=== PATIENT | male | born 1960 | race Caucasian/White ===

== ENCOUNTER 2018-09-28 18:10 | Emergency (ER) | payer BC, OTHER ==
--- OUTSIDE RECORDS SUMMARY | 2018-09-28 18:24 | XMS REPORT | Continuity of Care Document ---
:1960 External Reference #:[id number] Author Name Rani Winston Care Team Providers Name Role Phone Jackson Green Care Team Information Electronics Technician Unavailable Payers Date Identification Numbers Payment Provider Subscriber Policy Number: [id number] [facility] Dheeraj Morales PayID: [id number] [address] [address] [place] [address] Advance Directives Description No Information Available Problems Description No Information Family History Date Family Member(s) Observation Comments Father due to Lung Cancer () Father due to Heart Disease () Mother due to Breast Cancer () Social History Type Date Description Comments Sex Unknown Marital Status Has been 1 time Tobacco Use Start: Unknown Never Smoked Cigarettes ETOH Use Social Tobacco Use Start: Unknown Patient has never smoked Recreational Drug Use Never Used Drugs Smoking Status Reviewed: 02/19/17 Patient has never smoked Seat Belt/Car Seat Always uses seat belt Allergies, Adverse Reactions, Alerts Description No Known Drug Allergies Medications Active Medications SIG Qnty Indications Ordering Date Provider Famotidine 1 by mouth twice 180tabs K21.9 Jackson Green 02/24/2018 20mg Tablets a day as needed Lipitor 1 by mouth every 90tabs Jackson Green 10mg Tablets day Multivitamins OTC Unknown Capsules Amitriptyline HCL 1/2 tablet by Unknown 10mg mouth every Tablets night at bedtime L-Theanine one as needed Unknown 100mg Capsules for anxiety Lipoflavonoid one tablet 3 Unknown Tablets times a day History Medications Amoxicillin/Clavulanate 1 by mouth 21tabs H92.02 Jackson Green 07/30/2018 - Potassium three times a 09/22/2018 500-125mg Tablets day Diphenhydramine HCL (Sleep) 1 by mouth 14tabs H92.02 Norma, Jackson 2018 - 50mg every night at 09/22/2018 Tablets bedtime as needed Neomycin/Polymyxin/Hydrocorti 1 qtt both 10units H62.43 June Green, 07/23 - sone (Otic) ears 4x daily M.D. 09/22/2018 [id number] Solution Elavil 1 by mouth 90tabs E78.5 Gauss, Jackson 02/24/2018 - 25mg Tablets every day at 02/24/2018 bedtime Amitriptyline HCL 1 by mouth 90tabs E78.5 Gauss, Jackson 02/24/2018 - 25mg Tablets qhs. 02/24/2018 Elavil 1 by mouth 90tabs H93.13 Galily, Jackson 01/23/2017 - 25mg Tablets every hhs 02/24/2018 Elavil 1 by mouth H93.13 Galily, Jackson 09/26/2016 - 12.5 Tablets every day at 01/23/2017 bedtime Elavil 1 by mouth 90tabs H93.13 Gauss, Jackson 08/21/2016 - 25mg Tablets every day at 09/26/2016 bedtime Omeprazole 1 by mouth 90caps K21.9 Jackson Green 01/02/2016 - 40mg Capsules DR every day 05/07/2016 Prevacid 1 by mouth 90caps K21.9 GaJackson bautista 11/07/2015 - 30mg Capsules DR every day 11/07/2015 Famotidine 1 PO Q Day 90tabs K21.9 Arnel Greenl 11/07/2015 - 40mg Tablets 02/24/2018 Nexium 24HR 1 PO Q Day 90caps Jackson Green 06/22/2014 - 20mg Capsules DR 08/01/2015 Aspirin Low Dose 100tabs Jackson Green 06/22/2014 - 81mg Tablets 05/07/2016 Vitamin D-1000 Maximum 1 by mouth 100tabs Jackson Green 06/22/2014 - Strength every day 02/24/2018 1000Unit Tablets Prilosec 1 by mouth 90caps Unknown - 40mg Capsules DR every day 06/22/2014 Viagra one by mouth 14tabs Jackson Green - 100mg Tablets as needed 02/24/2018 Triamcinolone Acetonide twice a day to 60gm Jackson Green - 0.1% Ointment affected areas 08/01/2015 Immunizations CPT Code Status Date Vaccine Lot # [id number] Given 02/24/2018 Influenza Virus (Afluria) Split Virus 3 Years Of [id number] Age And Older 18969 Given 02/24/2018 Influenza Virus Vaccine, Quadrivalent, Split, Preservative Free [id number] Given 05/02/2016 Influenza Vaccine (Fluvirin) 3 Years Of Age Or Older 14673 Given 08/01/2015 Tetanus,Diphtheria,Adut/Adol Pertussis [id number] Given 05/11/2015 Influenza Vaccine (Fluvirin) 3 Years Of Age Or Older Vital Signs Date Vital Result Comment 09/22/2018 8:27am BP Systolic 156 mmHg BP Diastolic 84 mmHg Height 70 inches 5'10" Weight 149.00 lb BMI (Body Mass Index) 21.4 kg/m2 07/30/2018 11:22am BP Systolic 136 mmHg BP Diastolic 76 mmHg Body Temperature 97.8 F Height 70 inches 5'10" Weight 157.00 lb BMI (Body Mass Index) 22.5 kg/m2 07/23/2018 1:41pm BP Systolic 144 mmHg BP Diastolic 80 mmHg Body Temperature 97.9 F Height 70 inches 5'10" Weight 157.00 lb BMI (Body Mass Index) 22.5 kg/m2 02/24/2018 10:20am BP Systolic 120 mmHg BP Diastolic 70 mmHg Heart Rate 59 /min Height 70 inches 5'10" Weight 158.00 lb BMI (Body Mass Index) 22.7 kg/m2 O2 % BldC Oximetry 98 % 08/19/2017 10:56am BP Systolic 124 mmHg BP Diastolic 70 mmHg Height 70 inches 5'10" Weight 158.00 lb BMI (Body Mass Index) 22.7 kg/m2 02/19/2017 1:38pm BP Systolic 130 mmHg BP Diastolic 62 mmHg Height 70 inches 5'10" Weight 154.00 lb BMI (Body Mass Index) 22.1 kg/m2 09/26/2016 10:28am BP Systolic 116 mmHg BP Diastolic 68 mmHg 08/21/2016 2:10pm BP Systolic 124 mmHg BP Diastolic 78 mmHg 08/07/2016 2:31pm BP Systolic 130 mmHg BP Diastolic 68 mmHg Height 70 inches 5'10" Weight 154.00 lb BMI (Body Mass Index) 22.1 kg/m2 05/07/2016 10:36am BP Systolic 118 mmHg BP Diastolic 68 mmHg Height 70 inches 5'10" Weight 155.00 lb BMI (Body Mass Index) 22.2 kg/m2 01/02/2016 10:48am BP Systolic 122 mmHg BP Diastolic 68 mmHg 11/07/2015 11:47am BP Systolic 112 mmHg BP Diastolic 60 mmHg Height 70 inches 5'10" Weight 151.00 lb BMI (Body Mass Index) 21.7 kg/m2 08/01/2015 10:42am BP Systolic 132 mmHg BP Diastolic 78 mmHg Height 70 inches 5'10" Weight 157.00 lb BMI (Body Mass Index) 22.5 kg/m2 01/17/2015 10:07am BP Systolic 120 mmHg BP Diastolic 62 mmHg Height 70 inches 5'10" Weight 162.00 lb BMI (Body Mass Index) 23.2 kg/m2 07/19/2014 10:42am BP Systolic 128 mmHg BP Diastolic 70 mmHg Height 70 inches 5'10" Weight 159.00 lb BMI (Body Mass Index) 22.8 kg/m2 06/22/2014 1:53pm BP Systolic 110 mmHg BP Diastolic 58 mmHg Height 70 inches 5'10" Weight 160.00 lb BMI (Body Mass Index) 23.0 kg/m2 Results Test Date Facility Test Result H/L Range Note Lipid Panel 07/25/2018 [facility] Cholesterol 178 mg/dL <[address] [place], [place] [id number] [phone] HDL Cholesterol 52 mg/dL >40 Cholesterol/HDL Ratio 3.4 CALC <5.0 LDL Chol,Calculated 107 mg/dL High 0-100 2 Triglycerides 98 mg/dL <150 Non-HDL Cholesterol 126 mg/dL <130 3 Lipid Panel 02/18/2018 [facility] Cholesterol 184 mg/dL <199 [address] [facility]. [place], [place] [id number] [phone] HDL Cholesterol 56 mg/dL >40 Cholesterol/HDL Ratio 3.3 CALC <5.0 LDL Chol,Calculated 106 mg/dL High 0-100 4 Triglycerides 121 mg/dL <150 Non-HDL Cholesterol 128 mg/dL <130 5 Laboratory test 02/18/2018 [facility] PSA,Total 0.6 NG/ML < Or=4.0 [address] [place] [address] [phone] Testosterone,Total,MS 431 ng/dL 250-1100 7 Basic Metab W/O CA 02/18/2018 [facility] Sodium 141 mmol/L 135-[address] [place] [id number] [phone] Potassium 4.3 mmol/L 3.5-5.3 Chloride 102 mmol/L 98-110 Carbon Dioxide 32 mmol/L 20-32 8 Glucose 98 mg/dL 65-99 9 Urea Nitrogen (BUN) 12 mg/dL 7-25 Creatinine 0.97 mg/dL 0.70-1.33 10 BUN/Creatinine Ratio 12.2 6-22 TSH & T4,Free 02/18/2018 [facility] TSH 3.06 mIU/L 0.40-4.[address] [place] [id number] [phone] T4,Free 0.9 ng/dL 0.8-1.8 Laboratory 02/18/2018 [facility] Vitamin 41 30-[address] D,25-Hydroxy,Total,Immunoassay NG/[place] [address] [phone] Lipid Panel 08/13/2017 [facility] Cholesterol 164 <[address] mg/[place] [address] [phone] HDL Cholesterol 55 mg/dL >40 Cholesterol/HDL Ratio 3.0 CALC <5.0 LDL Chol,Calculated 94 mg/dL 0-100 12 Triglycerides 68 mg/dL <150 Non-HDL Cholesterol 109 mg/dL <130 13 Lipid Panel 02/14/2017 [facility] Cholesterol 184 mg/dL <[address] [place] [address] [phone] HDL Cholesterol 61 mg/dL >40 Cholesterol/HDL Ratio 3.0 CALC <5.0 LDL Chol,Calculated 107 mg/dL High <100 14 Triglycerides 74 mg/dL <150 Non-HDL Cholesterol 123 mg/dL <130 15 Laboratory 02/14/2017 [facility] Testosterone,Total,LC/MS/MS 339 250- 1100 16 test finding [address] ng/[place] [address] [phone] Vitamin D,25-Hydroxy,Total,Immunoassay 43 NG/ML 30-100 17 PSA,Total 0.6 NG/ML < Or=4.0 18 CBC W/ Diff & PLT 02/14/2017 [facility] WBC 5.4 thous/L 3.8-10.[address] [place] [address] [phone] RBC 5.23 mill/L 4.20-5.80 Hemoglobin 15.4 g/dL 13.2-17.1 Hematocrit 46.5 % 38.5-50.0 MCV 89.0 FL 80.0-100.0 MCH 29.5 pg 27.0-33.0 MCHC 33.2 g/dL 32.0-36.0 RDW 12.9 % 11.0-15.0 Platelet Count 293 thous/L 140-400 Platelet Sufficiency PENDING MPV 7.7 FL 7.5-12.5 Neutrophils,Absolute 3940 cells/L [phone] Bands,Absolute PENDING Metamyelocytes,Absolute PENDING Myelocytes,Absolute PENDING Promyelocytes,Absolute PENDING Lymphocytes,Absolute 920 cells/L [phone] Monocytes,Absolute 410 cells/L 200-950 Eosinophils,Absolute 80 cells/L 15-500 Basophils,Absolute 30 cells/L 0-200 Blast Cells,Absolute PENDING Nucleated RBC,Absolute PENDING Total Neutrophils,% 73 % 40-75 Bands,% PENDING Metamyelocytes,% PENDING Myelocytes,% PENDING Promyelocytes,% PENDING Total Lymphocytes,% 17 % 12-47 Monocytes,% 8 % 4-12 Eosinophils,% 1 % 0-4 Basophils,% 1 % 0-1 19 Blasts,% PENDING Nucleated RBC PENDING RBC Morphology PENDING Anisocytosis PENDING Poikilocytosis PENDING Microcytosis PENDING Macrocytosis PENDING Polychromasia PENDING Hypochromasia PENDING Target Cells PENDING Basophilic Stippling PENDING Comment PENDING Comp Metabolic Panel 02/14/2017 [facility] Sodium 139 mmol/L 135-[address] [place] [address] [phone] Potassium 4.1 mmol/L 3.5-5.3 Chloride 99 mmol/L 98-110 Carbon Dioxide 32 mmol/L High 20-31 Calcium 9.6 mg/dL 8.6-10.3 Alkaline Phosphatase 51 U/L 40-115 Ast 20 U/L 10-35 Alt 29 U/L 9-46 Bilirubin,Total 0.8 mg/dL 0.2-1.2 Glucose 97 mg/dL 65-99 20 Urea Nitrogen 11 mg/dL 7-25 Creatinine 1.00 mg/dL 0.70-1.33 21 BUN/Creatinine Ratio 10.7 6-22 Protein,Total 7.3 g/dL 6.1-8.1 Albumin 4.8 g/dL 3.6-5.1 Globulin,Calculated 2.5 g/dL 1.9-3.7 A/G Ratio 1.9 1.0-2.5 Egfr Non-Afr. Greek 83 ML/MIN/1.73M2 > Or=60 Egfr 96 ML/MIN/1.73M2 > Or=60 Lipid Panel 08/01/2016 [facility] Cholesterol 178 mg/dL 125-[address] [place], [place] [id number] [phone] HDL Cholesterol 54 mg/dL > Or=40 Cholesterol/HDL Ratio 3.3 < Or=5.0 LDL Chol,Calculated 100 mg/dL <130 22 Triglycerides 120 mg/dL <150 Non-HDL Cholesterol 125 mg/dL 23 Lipid Panel 05/03/2016 [facility] Cholesterol 187 mg/dL 125-200 6 [address] [facility] [place] [address] [phone] HDL Cholesterol 54 mg/dL > Or=40 Cholesterol/HDL Ratio 3.5 < Or=5.0 LDL Chol,Calculated 114 mg/dL <130 24 Triglycerides 93 mg/dL <150 Non-HDL Cholesterol 133 mg/dL 25 Lipid Panel 11/02/2015 [facility] Cholesterol 174 mg/dL 125-200 [address] [facility] [place] [address] [phone] HDL Cholesterol 49 mg/dL > Or=40 Cholesterol/HDL Ratio 3.6 < Or=5.0 LDL Chol,Calculated 105 mg/dL <130 26 Triglycerides 102 mg/dL <150 Non-HDL Cholesterol 125 mg/dL 27 Laboratory test 08/01/2015 [facility] PSA,Total 0.5 NG/ML < Or=4.0 [address] [place] [address] [phone] Laboratory test 07/19/2015 [facility] Magnesium 2.0 mg/dL 1.8-2.[address] [place] [id number] [phone] Laboratory test 07/19/2015 [facility] Thyroid Stim 3.28 0.36-3.[address] Hormone uIU/[place] [address] [phone] Free T4 0.86 ng/dL 0.76-1.46 Testosterone,Serum 07/19/2015 [facility] Testosterone, Serum [phone] ng/[place] [address] [phone] Comment See Note 29 Laboratory test 07/19/2015 [facility] Vitamin 49.8 30.0-100.0 [address] D,25-Hydroxy ng/mL [place] [id number] [phone] CBC W/ Diff & 07/19/2015 [facility] White Blood 6.4 K /uL 3.4-10.[address] [place] [address] [phone] Red Blood Count 5.33 M/uL 4.20-5.80 Hemoglobin 16.2 gm/dL 12.8-17.0 Hematocrit 45.7 % 38.0-48.0 Mean Cell Volume 85.7 fl 80.0-96.0 Mean Corpuscular HGB 30.4 pg 27.0-33.0 Mean Corpuscular HGB Conc 35.4 g/dL 31.7-36.0 Platelet Count 319 K/uL 150-400 Red Cell Distri Width SD 38.5 fl 36-51 Red Cell Distri Width %CV 12.6 % 11.6-15.8 Mean Platelet Volume 9.4 fL 6.6-10.6 Neut% 71.1 % 33.0-73.0 Lymph % 16.7 % Low 17.0-56.0 [place] % 10.6 % High 0.0-10.0 Eo% 1.4 % 0.0-5.0 Bas% 0.2 % 0.1-1.0 Neut# 4.52 K/uL 1.8-7.0 Lymph # 1.06 K/uL Low 1.8-7.0 [place] # 0.67 K/uL 0.0-0.8 Eos # 0.09 K/uL 0.0-0.5 Baso # 0.01 K/uL Low 0.1-0.2 Comprehensive Metabolic 07/19/2015 [facility] Glucose 90 mg/dL 74-[address] [place], [place] [id number] [phone] BUN 13 mg/dL 7-18 Creatinine 1.0 mg/dL 0.6-1.3 Glom Filtration Rate, Estimate >60 mL/min >60 If >60 mL/min >60 31 BUN/Creat 13.0 ratio Sodium 139 mmol/L 136-145 Potassium 4.0 mmol/L 3.5-5.1 Chloride 102 mmol/L 98-107 Carbon Dioxide 32 mmol/L 21-32 Anion Gap 5 mEq/L Low 8-16 Calcium 8.7 mg/dL 8.5-10.1 Total Protein 7.6 g/dL 6.4-8.2 Albumin 4.2 g/dL 3.4-5.0 Globulin 3.4 g/dL 1.9-4.3 Alb/Glob 1.2 ratio Bilirubin,Total 0.6 mg/dL 0.2-1.0 Sgot/Ast 17 U/L 15-37 SGPT/Alt 39 U/L 12-78 Alkaline Phosphatase 57 U/L 45-117 LDL Cholesterol 07/19/2015 [facility] Cholesterol 151 mg/dL <200 [address] [place], [place] [id number] [phone] Triglycerides 74 mg/dL <150 33 HDL Cholesterol 52 mg/dL >40 34 LDL-Cholesterol 84 mg/dL < 100 35 LDL Cholesterol 01/10/2015 [facility] Cholesterol 162 mg/dL < 200 [address] [place] [address] [phone] Triglycerides 92 mg/dL < 150 37 HDL Cholesterol 55 mg/dL > 40 38 LDL-Cholesterol 89 mg/dL < 100 39 Laboratory test 06/30/2014 [facility] Vitamin 47.5 30.0-100.0 [address] D,25-Hydroxy ng/mL [place], [place] [address] [phone] LDL Cholesterol 06/30/2014 [facility] Cholesterol 169 mg/dL < 200 [address] [place] [address] [phone] Triglycerides 96 mg/dL < 150 42 HDL Cholesterol 56 mg/dL > 40 43 LDL-Cholesterol 94 mg/dL < 100 44 CBS W/Automated 06/30/2014 [facility] White Blood 6.0 K/uL 3.4-10.[address] [place] [address] [phone] Red Blood Count 5.07 M/uL 4.20-5.80 Hemoglobin 15.5 gm/dL 12.8-17.0 Hematocrit 44.4 % 38.0-48.0 Mean Cell Volume 87.6 fl 80.0-96.0 Mean Corpuscular HGB 30.6 pg 27.0-33.0 Mean Corpuscular HGB Conc 34.9 g/dL 31.7-36.0 Platelet Count 311 K/uL 150-400 Red Cell Distri Width SD 39.9 fl 36-51 Red Cell Distri Width %CV 12.7 % 11.6-15.8 Mean Platelet Volume 9.6 fL 6.6-10.6 Neut% 70.1 % 33.0-73.0 Lymph % 16.6 % Low 17.0-56.0 [place] % 11.2 % High 0.0-10.0 Eo% 1.8 % 0.0-5.0 Bas% 0.3 % 0.1-1.0 Neut# 4.18 K/uL 1.8-7.0 Lymph # 0.99 K/uL Low 1.2-4.0 [place] # 0.67 K/uL High 0.0-0.6 Eos # 0.11 K/uL 0.0-0.5 Baso # 0.02 K/uL Low 0.1-0.2 Laboratory test 06/30/2014 [facility] Prostate 0.68 ng/mL [address] [place] [address] Antigen [phone] Testosterone,Seru 06/30/2014 [facility] Testosterone, S 417 ng/dL 348-[address] [place] [address] [phone] Comment See Note 46 Comprehensive Metabolic 06/30/2014 [facility] Glucose 84 mg/dL 74-[address] [place] [address] [phone] BUN 12 mg/dL 7-18 Creatinine 1.0 mg/dL 0.6-1.3 Glom Filtration Rate, Estimate >60 mL/min >60 If >60 mL/min >60 47 BUN/Creat 12.0 ratio Sodium 139 mmol/L 136-145 Potassium 3.8 mmol/L 3.5-5.1 Chloride 102 mmol/L 98-107 Carbon Dioxide 31 mmol/L 21-32 Anion Gap 10 mEq/L 8-16 Calcium 8.4 mg/dL Low 8.5-10.1 Total Protein 7.4 g/dL 6.4-8.2 Albumin 4.0 g/dL 3.4-5.0 Globulin 3.4 g/dL 1.9-4.3 Alb/Glob 1.2 ratio Bilirubin,Total 0.6 mg/dL 0.2-1.0 Sgot/Ast 18 U/L 15-37 SGPT/Alt 33 U/L 12-78 Alkaline Phosphatase 59 U/L 45-117 Laboratory test 06/30/2014 [facility] Thyroid Stim 2.57 uIU/mL 0.36-3.[address] [place] [address] [phone] Free T4 0.76 ng/dL 0.76-1.46 1 FASTING 2 LDL-C is now calculated using the Guido calculation, which is a validated novel method providing better accuracy than the Friedewald equation in the estimation of LDL-C. Romie VASQUEZ et al.YONI.2013;310(19):7066-6143 Desirable range <100 mg/dL for primary prevention; <70 mg/dL for patients with CHD or diabetic patients with >or=2 CHD risk factors. For additional information, please refer to http://education.[employer]/faq/BJM294(This link is being provided for informational/educational purposes only.) 3 For patients with diabetes plus 1 major ASCVD risk factor, treating to a non-HDL-C goal of <100 mg/dL (LDL-C of <70 mg/ dL) is considered a therapeutic option. 4 LDL-C is now calculated using the Romie-Lawson calculation, which is a validated novel method providing better accuracy than the Friedewald equation in the estimation of LDL-C. Romie VASQUEZ et al.YONI.2013;310(04):4734-2407 Desirable range <100 mg/dL for primary prevention; <70 mg/dL for patients with CHD or diabetic patients with >or=2 CHD risk factors. For additional information, please refer to http://[employer]/faq/UVI230(This link is being provided for informational/educational purposes only.) 5 For patients with diabetes plus 1 major ASCVD risk factor, treating to a non-HDL-C goal of <100 mg/dL (LDL-C of <70 mg/ dL) is considered a therapeutic option. 6 The total PSA value from this assay system is standardized against the WHO standard. The test result will be approximately 20% lower when compared to the equimolar-standardized total PSA (Skyler Franklin). Comparison of serial PSA results should be interpreted with this fact in mind. This test was performed using the Siemens chemiluminescent method. Values obtained from different assay methods be used interchangeably. PSA levels, regardless of value, should not be interpreted as absolute evidence of the presence or absence of disease. 7 For additional information, please refer to http://education.[employer]/faq/ KqiidJvojqqnexaduHUCHNPTMW400 (This link is being provided for informational/ educational purposes only.) This test was developed and its analytical performance characteristics have been determined by [facility] [place]. It has not been cleared or approved by the U.S. Food and Drug Administration. This assay has been validated pursuant to the CLIA regulations and is used for clinical purposes. 8 Reference range for high altitude clients: 18-30 mmol/L 9 GLUCOSE REFERENCE RANGE BASED ON FASTING SPECIMEN. 10 The upper reference limit for Creatinine is approximately 13% higher for people identified as -Greek. 11 Vitamin D Status 25-OH Vitamin D: Deficiency: <20 ng/mL Insufficiency: 20-29 ng/mL Optimal: > or=30 ng/mL For 25-OH Vitamin D testing on patients on D2-supplementation and patients for whom quantitation of D2 and D3 fractions is required, the [facility] 25-OH Vit D, (D2,D3),LC/MS/MS is recommended: Order code 95753 (patients >2 yrs). 12 LDL-C is now calculated using the Romie-Lawson calculation, which is a validated novel method providing better accuracy than the Friedewald equation in the estimation of LDL-C. Romie SS et al.YONI.2013;310(19):8170-3526 (http://education.[employer].Relevvant/faq/ZKD587) Desirable range <100 mg/dL for patients with CHD or Diabetes and <70 mg/dL for Diabetic patients with known heart disease 13 For patients with diabetes plus 1 major ASCVD risk factor, treating to a non-HDL-C goal of <100 mg/dL (LDL-C of <70 mg/ dL) is considered a therapeutic option. 14 The Romie-Lawson calculation is a validated novel method that provides better accuracy than the Friedewald equation in the estimation of LDL-C, particularly when TG levels are 150-400 mg/dL and LDL-C levels are lower than 70 mg/dL. Reference: Romie SS et al. Comparison of a Novel Method vs the Friedewald Equation for Estimating Low-Density Lipoprotein Cholesterol Levels From the Standard Lipid Profile. YONI. 2013;310(19): 0230-0690. Desirable range <100 mg/dL for patients with CHD or Diabetes and <70 mg/dL for Diabetic patients with known heart disease 15 For patients with diabetes plus 1 major ASCVD risk factor, treating to a non-HDL-C goal of <100 mg/dL (LDL-C of <70 mg/ dL) is considered a therapeutic option. 16 For more information on this test, go to http://education.[employer].Relevvant/faq/ TotalTestosteroneLCMSMS This test was developed and its analytical performance characteristics have been determined by [facility] [place], [place]. It has not been cleared or approved by the U.S. Food and Drug Administration. This assay has been validated pursuant to the CLIA regulations and is used for clinical purposes. 17 Vitamin D Status 25-OH Vitamin D: Deficiency: <20 ng/mL Insufficiency: 20-29 ng/mL Optimal: > or=30 ng/mL For 25-OH Vitamin D testing on patients on D2-supplementation and patients for whom quantitation of D2 and D3 fractions is required, the [facility] 25-OH Vit D, (D2,D3),LC/MS/MS is recommended: Order code 25510 (patients >2 yrs). 18 The total PSA value from this assay system is standardized against the WHO standard. The test result will be approximately 20% lower when compared to the equimolar-standardized total PSA (Skyler Franklin). Comparison of serial PSA results should be interpreted with this fact in mind. This test was performed using the Siemens chemiluminescent method. Values obtained from different assay methods be used interchangeably. PSA levels, regardless of value, should not be interpreted as absolute evidence of the presence or absence of disease. 19 Relative blood cell counts (%) should be compared with absolute cell counts (cells/mcL). Relative counts may not be clinically meaningful if the absolute count of one or more cell type is decreased. Reference ranges for relative cell counts derived from: A Manual of Laboratory and Diagnostics Tests, 9th Ed, K[employer] & Hallman, 2015. Pediatric Reference Intervals, 7th Ed, [employer], 2011. 20 GLUCOSE REFERENCE RANGE BASED ON FASTING SPECIMEN. 21 The upper reference limit for Creatinine is approximately 13% higher for people identified as -Greek. 22 LDL-CHOLESTEROL RISK CATEGORY* GOAL VERY HIGH (E.G. DIABETES + CVD) <70 MG/DL HIGH (DIABETICS; CHD RISK EQUIVALENTS) <100 MG/DL MODERATELY HIGH (MULTIPLE(2+) RISK FACTORS) <130 MG/DL 0 TO 1 RISK FACTORS <160 MG/DL * NCEP REPORT. CIRCULATION 2004; 110: 227-239 23 Target for non-HDL cholesterol is 30 mg/dL higher than LDL cholesterol target. 24 LDL-CHOLESTEROL RISK CATEGORY* GOAL VERY HIGH (E.G. DIABETES + CVD) <70 MG/DL HIGH (DIABETICS; CHD RISK EQUIVALENTS) <100 MG/DL MODERATELY HIGH (MULTIPLE(2+) RISK FACTORS) <130 MG/DL 0 TO 1 RISK FACTORS <160 MG/DL * NCEP REPORT. CIRCULATION 2004; 110: 227-239 25 Target for non-HDL cholesterol is 30 mg/dL higher than LDL cholesterol target. 26 LDL-CHOLESTEROL RISK CATEGORY* GOAL VERY HIGH (E.G. DIABETES + CVD) <70 MG/DL HIGH (DIABETICS; CHD RISK EQUIVALENTS) <100 MG/DL MODERATELY HIGH (MULTIPLE(2+) RISK FACTORS) <130 MG/DL 0 TO 1 RISK FACTORS <160 MG/DL * NCEP REPORT. CIRCULATION 2004; 110: 227-239 27 Target for non-HDL cholesterol is 30 mg/dL higher than LDL cholesterol target. 28 THIS TEST WAS PERFORMED USING THE SIEMENS CHEMILUMINESCENT METHOD. VALUES OBTAINED FROM DIFFERENT ASSAY METHODS CANNOT BE USED INTERCHANGEABLY. PSA LEVELS, REGARDLESS OF VALUE, SHOULD NOT BE INTERPRETED ABSOLUTE EVIDENCE OF THE PRESENCE OR ABSENCE OF DISEASE. 29 Adult male reference interval is based on a population of lean males up to 40 years old. Performed at: RN - [facility] [address] [id number] [place] Mate: Christine Solano MD, Phone: [phone] 30 Vitamin D deficiency has been defined by the [place] of [employer] and an Endocrine Society practice guideline as a level of serum 25-OH vitamin D less than 20 ng/mL (1,2). The Endocrine Society went on to further define vitamin D insufficiency as a level between 21 and 29 ng/mL (2). 1. IOM ([place] of [employer]). 2010. Dietary reference intakes for calcium and D. [place]: The National Academies Press. 2. Abel MF, Michelle NC, Josias RENNER, et al. Evaluation, treatment, and prevention of vitamin D deficiency: an Endocrine Society clinical practice guideline. JCEM. 2010; 96(7):1911-30. Performed at: RN - [facility] [address] [id number] [place] Mate: Christine Solano MD, Phone: [phone] Note: Persistent reduction for 3 months or more in an eGFR <60 mL/min/1.73 m2 defines CKD. Patients with eGFR values >/=60 mL/min/1.73 m2 may also have CKD if evidence of persistent proteinuria is present. The original MDRD equation for estimated GFR is not valid for patients less than 18 years of age. Additional information may be found at www.kdoqi.org. 32 Reference Guidelines*: Desirable: ........... < 200 mg/dL Borderline High: ..... 200-239 mg/dL High: ................ >=240 mg/dL * The National Cholesterol Education Program (NCEP) 33 Reference Guidelines*: Normal: ............. < 150 mg/dL Borderline High: .... 150-199 mg/dL High: ............... 200-499 mg/dL Very High: .......... > 500 mg/dL * Source: National Cholesterol Education Program (NCEP) 34 Reference Guidelines*: Low HDL: ..... < 40 mg/dL Normal: ..... 40-60 mg/dL Desirable: ... > 60 mg/dL *The National Cholesterol Education Program(NCEP) 35 Reference Guidelines*: Optimal:........... <100 mg/dL Near Optimal....... 100-129 mg/dL Borderline High.... 130-159 mg/dL High............... 160-189 mg/dL Very High.......... >=190 mg/dL * Source: National Cholesterol Education Program (NCEP) 36 Reference Guidelines*: Desirable: ........... < 200 mg/dL Borderline High: ..... 200-239 mg/dL High: ................ >=240 mg/dL * The National Cholesterol Education Program (NCEP) 37 Reference Guidelines*: Normal: ............. < 150 mg/dL Borderline High: .... 150-199 mg/dL High: ............... 200-499 mg/dL Very High: .......... > 500 mg/dL * Source: National Cholesterol Education Program (NCEP) 38 Reference Guidelines*: Low HDL: ..... < 40 mg/dL Normal: ..... 40-60 mg/dL Desirable: ... > 60 mg/dL *The National Cholesterol Education Program(NCEP) 39 Reference Guidelines*: Optimal:........... <100 mg/dL Near Optimal....... 100-129 mg/dL Borderline High.... 130-159 mg/dL High............... 160-189 mg/dL Very High.......... >=190 mg/dL * Source: National Cholesterol Education Program (NCEP) 40 Vitamin D deficiency has been defined by the [place] [employer] and an Endocrine Society practice guideline as a level of serum 25-OH vitamin D less than 20 ng/mL (1,2). The Endocrine Society went on to further define vitamin D insufficiency as a level between 21 and 29 ng/mL (2). 1. IOM ([place] of [employer]). 2010. Dietary reference intakes for calcium and D. [place]: The National Academies Press. 2. Abel MF, Michelle PITTMAN, Josias RENNER, et al. Evaluation, treatment, and prevention of vitamin D deficiency: an Endocrine Society clinical practice guideline. JCEM. 2010; 96(7):1911-30. Performed at: RN - [facility] [address] [id number] [place] Mate: Christine Solano MD, Phone: [phone] Reference Guidelines*: Desirable: ........... < 200 mg/dL Borderline High: ..... 200-239 mg/dL High: ................ >=240 mg/dL * The National Cholesterol Education Program (NCEP) 42 Reference Guidelines*: Normal: ............. < 150 mg/dL Borderline High: .... 150-199 mg/dL High: ............... 200-499 mg/dL Very High: .......... > 500 mg/dL * Source: National Cholesterol Education Program (NCEP) 43 Reference Guidelines*: Low HDL: ..... < 40 mg/dL Normal: ..... 40-60 mg/dL Desirable: ... > 60 mg/dL *The National Cholesterol Education Program(NCEP) 44 Reference Guidelines*: Optimal:........... <100 mg/dL Near Optimal....... 100-129 mg/dL Borderline High.... 130-159 mg/dL High............... 160-189 mg/dL Very High.......... >=190 mg/dL * Source: National Cholesterol Education Program (NCEP) 45 THIS ASSAY IS NOT INTENDED A CANCER SCREENING TEST The concentration of PSA in a given specimen, determined with assays from different manufacturers, can vary due to differences in assay methods and reagent specificity. Values obtained from different assay methods cannot be used interchangeably. 46 Adult male reference interval is based on a population of lean males up to 40 years old. Performed at: - [facility] [id number] [place]: Christine Solano MD, Phone: [phone] Note: Persistent reduction for 3 months or more in an eGFR <60 mL/min/1.73 m2 defines CKD. Patients with eGFR values >/=60 mL/min/1.73 m2 may also have CKD if evidence of persistent proteinuria is present. The original MDRD equation for estimated GFR is not valid for patients less than 18 years of age. Additional information may be found at www.kdoqi.org. Procedures Date Code Description Status 03/05/2018 47534 Non-Invcorrotid/Comp /Bilat Study Completed 02/18/2018 42868 Spirometry Graphic Record/Max Voluntary Vent Completed 02/18/2018 57773 EKG-Tracing & Report Completed 02/17/2018 48047 Echocardiography Completed 01/30/2018 46257 Dxa Bone Density [employer] Vertebral Fracture Completed Assessment 02/14/2017 96380 Non-Invcorrotid/Comp /Bilat Study Completed 02/14/2017 79388 Echocardiography Completed 02/07/2017 54322 Spirometry Graphic Record/Max Voluntary Vent Completed 02/07/2017 53979 EKG-Tracing & Report Completed 08/01/2015 55648 Therapeutic,Prophylactic Intramuscular Inj Completed 07/20/2015 93740 Holter Monitor Office Completed 07/08/2014 07198 EKG-Tracing & Report Completed 07/08/2014 34664 Bone Density Completed 07/08/2014 [id number] Bone Mineral Density Test Completed Encounters Type Date Location Provider Dx Diagnosis Office Visit 09/22/2018 10:50a Main Office [facility] F41.1 Generalized anxiety disorder B26.89 Other mumps complications Office Visit 07/30/2018 2:40p Main Office [facility] Green H92.02 Otalgia, left ear Office Visit 07/23/2018 1:30p Main Office [facility], H62.43 Otitis externa in M.D. oth diseases classd elswhr, bilateral Office Visit 02/24/2018 10:20a Main Office [facility] E78.5 Hyperlipidemia, unspecified I65.23 Occlusion and stenosis of bilateral carotid arteries I34.0 Nonrheumatic mitral (valve) insufficiency K21.9 Gastro-esophageal reflux disease without esophagitis Z23 Encounter for immunization Office Visit 08/19/2017 10:40a Main Office Norma Jackson I65.23 Occlusion and stenosis of bilateral carotid arteries I34.0 Nonrheumatic mitral (valve) insufficiency E78.5 Hyperlipidemia, unspecified K21.9 Gastro-esophageal reflux disease without esophagitis N52.01 Erectile dysfunction due to arterial insufficiency F41.9 Anxiety disorder, unspecified H93.13 Tinnitus, bilateral N40.0 Benign prostatic hyperplasia without lower urinry tract symp E55.9 Vitamin D deficiency, unspecified Office Visit 02/19/2017 1:40p Main Office Norma Jackson I65.23 Occlusion and stenosis of bilateral carotid arteries I34.0 Nonrheumatic mitral (valve) insufficiency E78.5 Hyperlipidemia, unspecified K21.9 Gastro-esophageal reflux disease without esophagitis N52.01 Erectile dysfunction due to arterial insufficiency F41.9 Anxiety disorder, unspecified Office Visit 09/26/2016 10:20a Main Office [facility] Green H93.13 Tinnitus, bilateral E78.5 Hyperlipidemia, unspecified K21.9 Gastro-esophageal reflux disease without esophagitis Office Visit 08/21/2016 2:00p Main Office [facility] H93.13 Tinnitus, bilateral F41.9 Anxiety disorder, unspecified Office Visit 08/07/2016 2:30p Main Office Jackson Green H93.13 Tinnitus, bilateral E78.5 Hyperlipidemia, unspecified Office Visit 05/07/2016 10:30a Main Office Jackson Green H93.13 Tinnitus, bilateral K21.9 Gastro-esophageal reflux disease without esophagitis N52.01 Erectile dysfunction due to arterial insufficiency E78.5 Hyperlipidemia, unspecified Office Visit 01/02/2016 10:50a Main Office Norma Jackson K21.9 Gastro- esophageal reflux disease without esophagitis Office Visit 11/07/2015 11:40a Main Office Norma Jackson K21.9 Gastro- esophageal reflux disease without esophagitis N52.01 Erectile dysfunction due to arterial insufficiency E78.5 Hyperlipidemia, unspecified Office Visit 08/01/2015 10:40a Main Office Gauss, Jackson K21.9 Gastro- esophageal reflux disease without esophagitis N52.01 Erectile dysfunction due to arterial insufficiency Z23 Encounter for immunization Office Visit 01/17/2015 10:00a Main Office [facility] 272.4 Hyperlipidemia Other Unspec 530.81 Esophageal Reflux Office Visit 07/19/2014 10:40a Main Office [facility] Green 272.4 Hyperlipidemia Other Unspec 607.84 Impotence Organic Origin 530.81 Esophageal Reflux Office Visit 06/22/2014 2:00p Main Office Jackson Green 600.20 benign localized hyperplasia of prostate w/o urinary obstruc 530.81 Esophageal Reflux 607.84 Impotence Organic Origin 272.4 Hyperlipidemia Other Unspec 786.7 Chest Sounds Abnormal 785.2 Murmur Cardiac Undiagnosed Plan of Treatment 09/22/2018 - Jackson GreenF41.1 Generalized anxiety disorderComments:Discussed treatment strategies and goals and effects of diet, exercise, environment, social stressors and OTC medications and supplements. Importance of medication compliance and follow up with mental health manager intensive care stressed where appropriate. Generalized symptoms reviewed and noted and monitoring for increase in dysphoria and somatic symptoms discussed. Continued medication use reviewed as appropriate.B26.89 Other mumps complications
--- OUTSIDE RECORDS SUMMARY | 2018-09-28 18:24 | XMS REPORT | Continuity of Care Document ---
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 Payers Date Identification Numbers Payment Provider Subscriber Policy Number: [id number] Skyeus Dheeraj Morales PayID: [id number] [address] [address] [place] [address] Advance Directives Description No Information Available Problems [...] Medications SIG Qnty Indications Ordering Date Provider Amoxicillin/Clavulanate 1 by mouth 21tabs H92.02 Jackson Green 07/30/2018 Potassium three times a 500-125mg Tablets day Diphenhydramine HCL 1 by mouth 14tabs H92.02 Jackson Green 07/30/2018 (Sleep) every night at 50mg Tablets bedtime as needed Neomycin/Polymyxin/Hydr 1 qtt both ears 10units H62.43 June Green 2018 ocortisone (Otic) 4x daily M.D. 3.5-93044-5 Solution Famotidine 1 by mouth 180tabs K21.9 Jackson Green 02/24/2018 20mg Tablets twice a day as needed Lipitor 1 by mouth 90tabs Jackson Green 10mg Tablets every day Multivitamins OTC Unknown Capsules History Medications Elavil 1 by mouth every 90tabs E78.5 Arnel Greenl 02/24/2018 - 25mg Tablets day at bedtime 02/24/2018 Amitriptyline HCL 1 by mouth qhs. 90tabs E78.5 Gauss, Jackson 02/24/2018 - 25mg 02/24/2018 Tablets Elavil 1 by mouth every 90tabs H93.13 GaArnel bautistal 01/23/2017 - 25mg Tablets hhs 02/24/2018 Elavil 1 by mouth every H93.13 GaArnel bautistal 09/26/2016 - 12.5 Tablets day at bedtime 01/23/2017 Elavil 1 by mouth every 90tabs H93.13 GaArnel bautistal 08/21/2016 - 25mg Tablets day at bedtime 09/26/2016 Omeprazole 1 by mouth every 90caps K21.9 TxArnel bautistal 01/02/2016 - 40mg Capsules day 05/07/2016 Prevacid 1 by mouth every 90caps K21.9 GaArnel bautistal 11/07/2015 - 30mg Capsules day 11/07/2015 Famotidine 1 PO Q Day 90tabs K21.9 Arnel Greenl 11/07/2015 - 40mg Tablets 02/24/2018 Nexium 24HR 1 PO Q Day 90caps Jackson Green 06/22/2014 - 20mg Capsules 08/01/2015 Aspirin Low Dose 100tabs Jackson Green 06/22/2014 - 81mg 05/07/2016 Tablets Vitamin D-1000 Maximum 1 by mouth every 100tabs Jackson Green 06/22/2014 - Strength day 02/24/2018 1000Unit Tablets Prilosec 1 by mouth every 90caps Unknown - 40mg Capsules day 06/22/2014 Viagra one by mouth as 14tabs Jackson Green - 100mg Tablets needed 02/24/2018 Triamcinolone twice a day to 60gm Jackson Green - Acetonide affected areas 08/01/2015 0.1% Ointment Immunizations CPT Code Status Date Vaccine Lot # [id number] Given 02/24/2018 Influenza Virus (Afluria) Split Virus 3 Years Of [id number] Age And Older [id number] Given 02/24/2018 Influenza Virus Vaccine, Quadrivalent, Split, Preservative Free [id number] Given 05/02/2016 Influenza Vaccine (Fluvirin) 3 Years Of Age Or Older [id number] Given 08/01/2015 Tetanus,Diphtheria,Adut/Adol Pertussis [id number] Given 05/11/2015 Influenza Vaccine (Fluvirin) 3 Years Of Age Or Older Vital Signs Date Vital Result Comment 09/22/2018 8:27am Height 70 inches 5'10" Weight 157.00 lb BMI (Body Mass Index) 22.5 kg/m2 07/30/2018 11:22am BP Systolic 136 mmHg [...] Lab Cholesterol 178 mg/dL <[address] [place], [place] [id number] [phone] HDL Cholesterol 52 mg/dL >40 Cholesterol/HDL Ratio 3.4 CALC <5.0 LDL Chol,Calculated 107 mg/dL High 0-100 2 Triglycerides 98 mg/dL <150 Non-HDL Cholesterol 126 mg/dL <130 3 Lipid Panel 02/18/2018 [facility] Cholesterol 184 mg/dL <199 [address] [facility]. [place], [place] [id number] [phone] HDL Cholesterol 56 mg/dL >40 Cholesterol/HDL Ratio 3.3 CALC <5.0 LDL Chol,Calculated 106 mg/dL High 0-100 4 Triglycerides 121 mg/dL <150 Non-HDL Cholesterol 128 mg/dL <130 5 Laboratory test 02/18/2018 [facility] PSA,Total 0.6 NG/ML < Or=4.0 6 finding [address] [facility] [place] [address] [phone] Testosterone,Total,MS 431 ng/dL 250-1100 7 Basic Metab W/O CA 02/18/2018 [facility] Sodium 141 mmol/L 135-[address] [place] [address] [phone] Potassium 4.3 mmol/L 3.5-5.3 Chloride 102 mmol/L 98-110 Carbon Dioxide 32 mmol/L 20-32 8 Glucose 98 mg/dL 65-99 9 Urea Nitrogen (BUN) 12 mg/dL 7-25 Creatinine 0.97 mg/dL 0.70-1.33 10 BUN/Creatinine Ratio 12.2 6-22 TSH & T4,Free 02/18/2018 [facility] TSH 3.06 mIU/L 0.40-4.[address] [place] [address] [phone] T4,Free 0.9 ng/dL 0.8-1.8 Laboratory 02/18/2018 [facility] Vitamin 41 30-[address] D,25-Hydroxy,Total,Immunoassay NG/[place] [address] [phone] Lipid Panel 08/13/2017 [facility] Cholesterol 164 <[address] mg/[place] [address] [phone] HDL Cholesterol 55 mg/dL >40 Cholesterol/HDL Ratio 3.0 CALC <5.0 LDL Chol,Calculated 94 mg/dL 0-100 12 Triglycerides 68 mg/dL <150 Non-HDL Cholesterol 109 mg/dL <130 13 Lipid Panel 02/14/2017 [facility] Cholesterol 184 mg/dL <[address] [place] [address] [phone] HDL Cholesterol 61 mg/dL >40 Cholesterol/HDL Ratio 3.0 CALC <5.0 LDL Chol,Calculated 107 mg/dL High <100 14 Triglycerides 74 mg/dL <150 Non-HDL Cholesterol 123 mg/dL <130 15 Laboratory 02/14/2017 [facility] Testosterone,Total,LC/MS/MS 339 250- 1100 16 test finding [address] ng/[place] [address] [phone] Vitamin D,25-Hydroxy,Total,Immunoassay 43 NG/ML 30-100 17 PSA,Total 0.6 NG/ML < Or=4.0 18 CBC W/ Diff & PLT 02/14/2017 [facility] WBC 5.4 thous/L 3.8-10.8 [address] [place] [address] [phone] RBC 5.23 mill/L 4.20-5.80 Hemoglobin 15.4 g/dL 13.2-17.1 Hematocrit 46.5 % 38.5-50.0 MCV 89.0 FL 80.0-100.0 MCH 29.5 pg 27.0-33.0 MCHC 33.2 g/dL 32.0-36.0 RDW 12.9 % 11.0-15.0 Platelet Count 293 thous/L 140-400 Platelet Sufficiency PENDING MPV 7.7 FL 7.5-12.5 Neutrophils,Absolute 3940 cells/L [phone] Bands,Absolute PENDING Metamyelocytes,Absolute PENDING Myelocytes,Absolute PENDING Promyelocytes,Absolute [...] [facility] Sodium 139 mmol/L 135-146 [address] [place] [address] [phone] Potassium 4.1 mmol/L 3.5-5.3 Chloride 99 mmol/L [...] 1.9-3.7 A/G Ratio 1.9 1.0-2.5 Egfr Non-Afr. Malagasy 83 ML/MIN/1.73M2 > Or=60 Egfr 96 ML/MIN/1.73M2 > Or=60 Lipid Panel 08/01/2016 [facility] Cholesterol 178 mg/dL 125-[address] [place] [address] [phone] HDL Cholesterol 54 mg/dL > Or=40 Cholesterol/HDL Ratio 3.3 < Or=5.0 LDL Chol,Calculated 100 mg/dL <130 22 Triglycerides 120 mg/dL <150 Non-HDL Cholesterol 125 mg/dL 23 Lipid Panel 05/03/2016 [facility] Cholesterol 187 mg/dL 125-[address] [place] [address] [phone] HDL Cholesterol 54 mg/dL > Or=40 Cholesterol/HDL Ratio 3.5 < Or=5.0 LDL Chol,Calculated 114 mg/dL <130 24 Triglycerides 93 mg/dL <150 Non-HDL Cholesterol 133 mg/dL 25 Lipid Panel 11/02/2015 [facility] Cholesterol 174 mg/dL 125-[address] [place] [address] [phone] HDL Cholesterol 49 mg/dL > Or=40 Cholesterol/HDL Ratio 3.6 < Or=5.0 LDL Chol,Calculated 105 mg/dL <130 26 Triglycerides 102 mg/dL <150 Non-HDL Cholesterol 125 mg/dL 27 Laboratory test 08/01/2015 [facility] PSA,Total 0.5 NG/ML < Or=4.0 [address] [place] [address] [phone] Laboratory test 07/19/2015 [facility] Magnesium 2.0 mg/dL 1.8-2.[address] [place] [address] [phone] Laboratory test 07/19/2015 [facility] Thyroid Stim 3.28 0.36-3.[address] Hormone uIU/[place] [address] [phone] Free T4 0.86 ng/dL 0.76-1.46 Testosterone,Serum 07/19/2015 [facility] Testosterone, Serum [phone] ng/[place] [address] [phone] Comment See Note 29 Laboratory test 07/19/2015 [facility] Vitamin 49.8 30.0-100.0 [address] D,25-Hydroxy ng/[place] [address] [phone] CBC W/ Diff & 07/19/2015 [facility] White Blood 6.4 K /uL 3.4-10.[address] [place] [address] [phone] Red Blood Count 5.33 M/uL 4.20-5.80 Hemoglobin [...] 33.0-73.0 Lymph % 16.7 % Low 17.0-56.0 Candler % 10.6 % High 0.0-10.0 Eo% 1.4 % 0.0-5.0 Bas% 0.2 % 0.1-1.0 Neut# 4.52 K/uL 1.8-7.0 Lymph # 1.06 K/uL Low 1.8-7.0 Candler # 0.67 K/uL 0.0-0.8 Eos # 0.09 K/uL 0.0-0.5 Baso # 0.01 K/uL Low 0.1-0.2 Comprehensive Metabolic 07/19/2015 [facility] Glucose 90 mg/dL 74-[address] [place], [place] [id number] [phone] BUN 13 mg/dL 7-18 Creatinine 1.0 mg/dL [...] Phosphatase 57 U/L 45-117 LDL Cholesterol 07/19/2015 [facility] Cholesterol 151 mg/dL <200 [address] [place], [place] [id number] [phone] Triglycerides 74 mg/dL <150 33 HDL Cholesterol 52 mg/dL >40 34 LDL-Cholesterol 84 mg/dL < 100 35 LDL Cholesterol 01/10/2015 [facility] Cholesterol 162 mg/dL < 200 [address] [place], [place] [address] [phone] Triglycerides 92 mg/dL < 150 37 HDL Cholesterol 55 mg/dL > 40 38 LDL-Cholesterol 89 mg/dL < 100 39 Laboratory test 06/30/2014 [facility] Vitamin 47.5 30.0-100.0 [address] D,25-Hydroxy ng/[place] [address] [phone] LDL Cholesterol 06/30/2014 [facility] Cholesterol 169 mg/dL < 200 [address] [place] [address] [phone] Triglycerides 96 mg/dL < 150 42 HDL Cholesterol 56 mg/dL > 40 43 LDL-Cholesterol 94 mg/dL < 100 44 CBS W/Automated 06/30/2014 [facility] White Blood 6.0 K/uL 3.4-10.[address] [place] [address] [phone] Red Blood Count 5.07 M/uL 4.20-5.80 Hemoglobin [...] 33.0-73.0 Lymph % 16.6 % Low 17.0-56.0 Candler % 11.2 % High 0.0-10.0 Eo% 1.8 % 0.0-5.0 Bas% 0.3 % 0.1-1.0 Neut# 4.18 K/uL 1.8-7.0 Lymph # 0.99 K/uL Low 1.2-4.0 Candler # 0.67 K/uL High 0.0-0.6 Eos # 0.11 K/uL 0.0-0.5 Baso # 0.02 K/uL Low 0.1-0.2 Laboratory test 06/30/2014 [facility] Prostate 0.68 ng/mL [address] [place] [address] Antigen [phone] Testosterone,Seru 06/30/2014 [facility] Testosterone, S 417 ng/dL 348-[address] [place], [place] [id number] [phone] Comment See Note 46 Comprehensive Metabolic 06/30/2014 [facility] Glucose 84 mg/dL 74-[address] [place], [place] [address] [phone] BUN 12 mg/dL 7-18 Creatinine 1.0 mg/dL [...] Phosphatase 59 U/L 45-117 Laboratory test 06/30/2014 [facility] Thyroid Stim 2.57 uIU/mL 0.36-3.[address] [place] [address] [phone] Free T4 0.76 ng/dL 0.76-1.46 1 FASTING 2 LDL-C is now calculated using the Romie-Lawson calculation, which is a validated novel method providing better accuracy than the Friedewald equation in the estimation of LDL-C. Romie SS et al.YOIN.2013;310(19):6582-6571 Desirable range <100 mg/dL for primary prevention; <70 mg/dL for patients with CHD or diabetic patients with >or=2 CHD risk factors. For additional information, please refer to http://education.Slots.com/faq/TKY325(This link is being provided for informational/educational purposes [...] the estimation of LDL-C. Romie VASQUEZ et al.YONI.2013;310(85):4909-3968 Desirable range <100 mg/dL for primary prevention; <70 mg/dL for patients with CHD or diabetic patients with >or=2 CHD risk factors. For additional information, please refer to http://BlueSnap.Slots.com/faq/NOR824(This link is being provided for informational/educational purposes [...] compared to the equimolar-standardized total PSA (Skyler Richland). Comparison of serial PSA results should be interpreted with this fact in mind. This test was performed using the Siemens chemiluminescent method. Values obtained from different assay methods be used interchangeably. PSA levels, regardless of value, should not be interpreted as absolute evidence of the presence or absence of disease. 7 For additional information, please refer to http://BlueSnap.SimpliVT/faq/ MtyzlWbopndqaaaltIUIOBPBAA994 (This link is being provided for informational/ educational purposes only.) This test was developed and its analytical performance characteristics have been determined by [facility] [place], [place]. It has not been cleared or approved by the U.S. Food and Drug Administration. This assay has been validated pursuant to the CLIA regulations and is used for clinical purposes. 8 Reference range for high altitude clients: 18-30 mmol/L 9 GLUCOSE REFERENCE RANGE BASED ON FASTING SPECIMEN. 10 The upper reference limit for Creatinine is approximately 13% higher for people identified as -Malagasy. 11 Vitamin D Status 25-OH Vitamin D: Deficiency: <20 ng/mL Insufficiency: 20-29 ng/mL Optimal: > or=30 ng/mL For 25-OH Vitamin D testing on patients on D2-supplementation and patients for whom quantitation of D2 and D3 fractions is required, the QuestAssure[facility] 25-OH Vit D, (D2,D3),LC/MS/MS is recommended: Order code 01495 (patients >2 yrs). 12 LDL-C is now calculated using the Romie-Lawson calculation, which is a validated novel method providing better accuracy than the Friedewald equation in the estimation of LDL-C. Romie SS et al.YONI.2013;310(19):6042-5428 (http://education.Akorri Networks.Via optronics/faq/LVB435) Desirable range <100 mg/dL for patients with [...] From the Standard Lipid Profile. YONI. 2013;310(19): 9335-6661. Desirable range <100 mg/dL for patients with CHD or Diabetes and <70 mg/dL for Diabetic patients with known heart disease 15 For patients with diabetes plus 1 major ASCVD risk factor, treating to a non-HDL-C goal of <100 mg/dL (LDL-C of <70 mg/ dL) is considered a therapeutic option. 16 For more information on this test, go to http://education.ActiveSec.Via optronics/faq/ TotalTestosteroneLCMSMS This test was developed and its analytical performance characteristics have been determined by [facility] [place], [place]. It has not been cleared or [...] Vit D, (D2,D3),LC/MS/MS is recommended: Order code 62430 (patients >2 yrs). 18 The total PSA value from this assay system is standardized against the WHO standard. The test result will be approximately 20% lower when compared to the equimolar-standardized total PSA (Skyler Mily). Comparison of serial PSA results should be [...] approximately 13% higher for people identified as -Malagasy. 22 LDL-CHOLESTEROL RISK CATEGORY* GOAL VERY HIGH [...] years old. Performed at: RN - [facility] [address] [id number] Advice Nurse: Christine Solano MD, Phone: [phone] Vitamin D deficiency has been defined by the [place] of Medicine and an Endocrine Society practice guideline as a level of serum 25-OH vitamin D less than 20 ng/mL (1,2). The Endocrine Society went on to further define vitamin D insufficiency as a level between 21 and 29 ng/mL (2). 1. IOM ([place] of [employer]). 2010. Dietary reference intakes for calcium and D. [place]: The National Academies Press. 2. Abel MF, Michelle PITTMAN, Josias RENNER, et al. Evaluation, treatment, and prevention of vitamin D deficiency: an Endocrine Society clinical practice guideline. JCEM. 2010; 96(7):1911-30. Performed at: RN - [facility] [address] [id number] Advice Nurse: Christine Solano MD, Phone: [phone] 31 Note: Persistent reduction for 3 months [...] D deficiency has been defined by the [place] of [employer] and an Endocrine Society practice guideline as a level of serum 25-OH vitamin D less than 20 ng/mL (1,2). The Endocrine Society went on to further define vitamin D insufficiency as a level between 21 and 29 ng/mL (2). 1. IOM ([place] of [employer]). 2010. Dietary reference intakes for calcium and D. [place]: The National Academies Press. 2. Abel MF, Michelle [place], Josias RENNER, et al. Evaluation, treatment, and prevention of vitamin D deficiency: an Endocrine Society clinical practice guideline. JCEM. 2010; 96(7):1911-30. Performed at: [facility] [id number] Advice Nurse: Christine Solano MD, Phone: [phone] Reference Guidelines*: Desirable: ........... < 200 [...] up to 40 years old. Performed at: [facility] [address] [id number] Advice Nurse: Christine Solano MD, Phone: [phone] Note: Persistent reduction for 3 months [...] www.kdoqi.org. Procedures Date Code Description Status 03/05/2018 72738 Non-Invcorrotid/Comp /Bilat Study Completed 02/18/2018 40233 Spirometry Graphic Record/Max Voluntary Vent Completed 02/18/2018 71466 EKG-Tracing & Report Completed 02/17/2018 76786 Echocardiography Completed 01/30/2018 12907 Dxa Bone Density [employer] Vertebral Fracture Completed Assessment 02/14/2017 67744 Non-Invcorrotid/Comp /Bilat Study Completed 02/14/2017 58025 Echocardiography Completed 02/07/2017 17469 Spirometry Graphic Record/Max Voluntary Vent Completed 02/07/2017 73021 EKG-Tracing & Report Completed 08/01/2015 09949 Therapeutic,Prophylactic Intramuscular Inj Completed 07/20/2015 77469 Holter Monitor Office Completed 07/08/2014 72052 EKG-Tracing & Report Completed 07/08/2014 18064 Bone Density Completed 07/08/2014 136521947 Bone Mineral Density Test Completed Encounters Type Date Location Provider Dx Diagnosis Office Visit 07/30/2018 Main Office Jackson Green H92.02 Otalgia, left ear 2:40p Office Visit 07/23/2018 Main Office June Green M.D. H62.43 Otitis externa in oth 1:30p diseases classd elswhr, bilateral Office Visit 02/24/2018 Main Office Jackson Green E78.5 Hyperlipidemia, 10:20a unspecified I65.23 Occlusion and stenosis of bilateral carotid arteries I34.0 Nonrheumatic mitral (valve) insufficiency K21.9 Gastro-esophageal reflux disease without esophagitis Z23 Encounter for immunization Office Visit 08/19/2017 10:40a Main Office Jackson Green I65.23 Occlusion and stenosis of bilateral carotid arteries I34.0 Nonrheumatic mitral (valve) insufficiency E78.5 Hyperlipidemia, unspecified K21.9 Gastro-esophageal reflux disease without esophagitis N52.01 Erectile dysfunction due to arterial insufficiency F41.9 Anxiety disorder, unspecified H93.13 Tinnitus, bilateral N40.0 Benign prostatic hyperplasia without lower urinry tract symp E55.9 Vitamin D deficiency, unspecified Office Visit 02/19/2017 1:40p Main Office Jackson Green I65.23 Occlusion and stenosis of bilateral carotid [...] unspecified Office Visit 01/02/2016 10:50a Main Office Jackson Green K21.9 Gastro- esophageal reflux disease without esophagitis Office Visit 11/07/2015 11:40a Main Office Jackson Green K21.9 Gastro- esophageal reflux disease without esophagitis N52.01 Erectile dysfunction due to arterial insufficiency E78.5 Hyperlipidemia, unspecified Office Visit 08/01/2015 10:40a Main Office Jackson Green K21.9 Gastro- esophageal reflux disease without esophagitis [...] 785.2 Murmur Cardiac Undiagnosed Plan of Treatment 07/30/2018 - Perry Green92.02 Otalgia, left earNew Medication:Amoxicillin/ Clavulanate Potassium 500-125 mg - 1 by mouth three times a dayDiphenhydramine HCL (Sleep) 50 mg - 1 by mouth every night at bedtime as neededComments:still with pain that comes and goes, dcreased TM mvt consist with serous otitisReferral:Zaid Villalba M.D., Otolaryngology
--- NOTE | 2018-09-28 18:28 | UC ---
Ear Complaint HPI - HPI Summary HPI Summary: 58 y/o male presents to the urgent care c/o sudden mild RT ear pain w/ bloody drainage and decrease hearing about 1hr ago. Pt reports he has Hx of tinnitus w/ o any vertigo and he has seen already 2 ENTs in the area to r/o Meniere's disease. He states his tinnitus is caused by his depression. Pt reports ear pain is mild 3/10 associated w/ clogged ear. He applied OTC otic drops and that' s when he noticed the blood. Pt denies fever, URI, dizziness, RENNER, SOB, chest pain, abdominal pain, N/V/D. - History of Current Complaint Stated Complaint: RIGHT EAR ISSUE Time Seen by Provider: 09/28/18 18:28 Hx Obtained From: Patient Onset/Duration: Gradual Onset, Lasting Hours - 1 hr ago, Still Present Severity Initially: Mild Severity Currently: Mild Pain Intensity: 3 Pain Scale Used: 0-10 Numeric Alleviating Factors: OTC Meds Associated Signs/Symptoms: Positive: Hearing Loss - w/ bloody discharge - Allergies/Home Medications Allergies/Adverse Reactions: Allergies Allergy/AdvReac Type Severity Reaction Status Date / Time No Known Allergies Allergy Verified 09/28/18 18:28 Home Medications: Home Medications Atorvastatin* [Lipitor 10 MG*] 10 mg PO DAILY 09/28/18 [History Confirmed ] Multivitamin [Multivitamins] 1 cap PO DAILY 09/28/18 [History Confirmed 09/28/18 ] Riboflavin (Vitamin B2) [Riboflavin] 50 mg PO DAILY 09/28/18 [History Confirmed 09/28/18] Theanine [l-Theanine] 200 mg PO SEE INSTRUCTIONS PRN 09/28/18 [History Confirmed 09/28/18] PMH/Surg Hx/FS Hx/Imm Hx Previously Healthy: Yes Endocrine History: Dyslipidemia Psychological History: Anxiety, Depression - Family History Known Family History: Positive: Cardiac Disease - Social History Occupation: Employed Full-time Lives: With Family Review of Systems All Other Systems Reviewed And Are Negative: Yes Constitutional: Positive: Negative Skin: Positive: Negative Eyes: Positive: Negative ENT: Positive: Ear Ache - Rt ear pressure and pain w/ decrease hearing Respiratory: Positive: Negative Cardiovascular: Positive: Negative Gastrointestinal: Positive: Negative Genitourinary: Positive: Negative Motor: Positive: Negative Neurovascular: Positive: Negative Musculoskeletal: Positive: Negative Neurological: Positive: Negative Psychological: Positive: Negative Is Patient Immunocompromised?: No Physical Exam - Summary Physical Exam Summary: Vital signs: reviewed General: well developed, well nourished male sitting in the examining table w/o any apparent distress Skin: [place], warm and dry, no evidence of atopic dermatitis, psoriasis, seborrhea. HEENT: -Head: atraumatic, non tender; no scalp dermatitis. -Eyes: sclera and conjunctiva clear, PERRLA, EOMI -Ears: no pre- or postauricular lymphadenopathy or erythema; RT external ear canal with erythema and bloddy discharge, positive abrasion around 6 o'clock mild pinna tenderness on palpation, Rt TM WNL, LF external ear canal clear and LF TM WNL. Good light reflex. No fluid level, vesicles, or bullae. No perforation. -Nose/Face: erythematous and edematous nasal mucosa with clear rhinorrhea, no frontal or maxillary sinus tender to palpation. -Mouth/Throat: Mucous membrane moist, posterior pharynx clear, no erythema or exudates. Neck: supple, FROM, nontender, no lymphadenopathy, no meningismus. Chest: Clear to auscultation, normal breath sounds Abd: soft, Bowel sounds active, Nontender. Back: no spinal or CVAT Neuro: A&O x4, GCS 15, no focal neuro deficits, normal behavior for age. Triage Information Reviewed: Yes Ear Complaint Course/Dx - Course Course Of Treatment: 58 y/o male presents to the urgent care c/o sudden mild RT ear pain w/ bloody drainage and decrease hearing about 1hr ago. Pt reports he has Hx of tinnitus w/ o any vertigo and he has seen already 2 ENTs in the area to r/o Meniere's disease. He states his tinnitus is caused by his depression. Pt reports ear pain is mild 3/10 associated w/ clogged ear. He applied OTC otic drops and that' s when he noticed the blood. Pt denies fever, URI, dizziness, RENNER, SOB, chest pain, abdominal pain, N/V/D. Hx obtained. Pt with a RT otitis externa and Rt external ear abrasion around 6 o'clock w/ active bleeding on examination. External ear canal blood cleaned w/ cotton swabs and ear wick. Pt tolerated well procedure. Pt Rx Cortisporin otic drops. otic drops dispense here at the clinic. PT Advised to take ibuprofen PO OTC for pain. If symptoms do not improve or worsen to f/u with PCP or ENT Dr Rome for further management. Pt's BP is elevated today advised to decrease salt in diet, monitor BP and f/u with PCP for further management. Pt understood and agreed with D/C instructions. - Differential Dx/Diagnosis Differential Diagnosis/HQI/PQRI: Cerumen Impaction, Otitis Externa, Otitis Media , Perforated TM, URI Provider Diagnosis: Right otitis media, Elevated BP without diagnosis of hypertension Discharge - Sign-Out/Discharge Documenting (check all that apply): Patient Departure - D/c home All imaging exams completed and their final reports reviewed: No Studies - Discharge Plan Condition: Stable Disposition: HOME Patient Education Materials: Otitis Externa (ED) Referrals: Jackson Green MD [Primary Care Provider] - 3 Days Tony Rome MD [Medical Doctor] - If Needed Additional Instructions: 1-Please apply Cortisporin otic antibiotic that was dispense here at the clinic on your Rt ear as directed. 2-Take ibuprofen PO after meals for pain. 3-If symptoms do not improve or worsen please f/u with your PCP or ENT Dr Rome in 3 days for further evaluation and treatment. 4- Your BP is elevated today. please decrease salt in your diet, monitor BP and if it continues to be elevated please f/u with your PCP for further management. - Billing Disposition and Condition Condition: STABLE Disposition: Home
[2018-09-28 18:37] VITALS: BP 148/82
[2018-09-28] MEDS ORDERED: Neomyc/Polym/HC 1% OTIC SUSP* **OTIC ONE (19:07)
[2018-09-28] MEDS ORDERED: Neomyc/Polym/HC 1% OTIC SUSP* **OTIC RIGHT EAR SCH (21:00)
== END 2018-09-28 19:36 | disposition home or self-care (01) ==
LOC: UCCORT 18:10
DX: H66.91 Otitis media, unspecified, right ear (principal); R03.0 Elevated blood-pressure reading, without diagnosis of hypertension
CPT/HCPCS: 99202; A9270-GY; G0463